=== PATIENT | female | born 1970 | race Two or more races ===

== ENCOUNTER 2018-11-26 11:21 | Outpatient (CLI) | payer OTHER ==
[~2018-11-26 11:21] MED LIST: TUSSI-PRES LIQ118 ML PO; TUSSIONEX PENN115 ML PO
== END 2018-11-26 16:19 | disposition home or self-care (01) ==
LOC: NUCLEAR 11:21
DX: I10 Essential (primary) hypertension (principal)

== ENCOUNTER 2020-06-01 08:50 | Outpatient (CLI) | payer OTHER | END 2020-06-01 10:59 | disposition home or self-care (01) | LOC: NUCLEAR 08:50 | DX: M06.4 Inflammatory polyarthropathy (principal) | CPT/HCPCS: 78315; A9503 ==

== ENCOUNTER 2023-08-12 08:43 | Outpatient (CLI) | payer OTHER | END 2023-08-12 08:55 | disposition home or self-care (01) | LOC: TOM 08:43 | PROVIDERS: ATTEND Specialist | DX: R10.2 Pelvic and perineal pain (principal); R10.10 Upper abdominal pain, unspecified; I34.1 Nonrheumatic mitral (valve) prolapse; R51.9 Headache, unspecified ==

== ENCOUNTER 2023-11-14 07:08 | Emergency (ER) | payer OTHER ==
[~2023-11-14] VITALS: Ht 154.9 cm; Wt 76.7 kg
[2023-11-14 08:53] LABS: HEMATOCRIT 40.3 % (36.0-45.00); HEMOGLOBIN 13.9 g/dL (12.0-15.00); MEAN CELL VOLUME 88.9 fL (80.00-100.00); MEAN CORPUSCULAR HEMOGLOBIN 30.7 pg (27.00-32.0); MEAN CORPUSCULAR HGB CONC 34.5 g/dl (32.0-36.0); PLATELET COUNT 208 K/uL (150-450); RED BLOOD COUNT 4.53 M/uL (4.00-6.00)
[2023-11-14 09:10] LABS: PH,URINE 5.5 (5.0-8.0); URINE APPEARANCE Clear; URINE BILIRRUBIN Negative (NEGATIVE); URINE BLOOD Trace; URINE COLOR Yellow; URINE GLUCOSE Negative (NEGATIVE); URINE LEUKOCYTE Negative; URINE NITRATE Negative; URINE PROTEIN Negative (NEGATIVE); URINE UROBILINOGEN 0.2 E.U./dl
[2023-11-14 09:13] LABS: URINE RBC 21.8 uL (0.0-20.8)
[2023-11-14 09:22] LABS: BILIRUBIN TOTAL 0.42 mg/dL (0.3-1.2); BILIRUBIN,CONJUGATED 0.14 mg/dL (0.0-0.2); BILIRUBIN,UNCONJUGATED 0.28 mg/dL (0.0-0.6); CALCIUM 9.7 mg/dL (8.5-10.1); CREATININE SERUM 0.92 mg/dL (0.55-1.02); GFR 64.1; GLOBULINA 3.6 G/DL (2.4-3.5); POTASSIUM 4.23 mEq/L (3.5-5.1); TOTAL PROTEIN 7.6 gm/dL (6.4-8.2)
== END 2023-11-14 13:39 | disposition home or self-care (01) ==
LOC: ER 07:09
PROVIDERS: Emergency Medicine
DX: R10.9 Unspecified abdominal pain (principal); M54.9 Dorsalgia, unspecified